=== PATIENT | male | born 1960 | race Caucasian/White ===

== ENCOUNTER 2024-01-19 12:32 | Emergency (ER) | payer OTHER ==
[2024-01-19] MEDS: Bacitracin Oint 1 GM U/D Packet TOP ONE (13:21)
[2024-01-19] MEDS: Lidocaine 1% with EPINEPHrine 1:100,000 20 ML MDV INJECT ONE (13:21)
[2024-01-19] MEDS: Diphtheria,Pertussis(Acell),Tetanus Vaccine 0.5 ML Syringe IM ONE (13:27)
== END 2024-01-19 13:32 | disposition home or self-care (01) ==
LOC: JP.ED 12:32
DX: S81.812A Laceration without foreign body, left lower leg, initial encounter (principal); Z23 Encounter for immunization; Z79.899 Other long term (current) drug therapy; W22.8XXA Striking against or struck by other objects, initial encounter
CPT/HCPCS: 12002; 90471; 90715; 99282; 99282-25